=== PATIENT | female | born 1955 | race Caucasian/White ===

== ENCOUNTER 2020-08-07 13:33 | Emergency (ER) | payer OTHER, SELFPAY ==
[2020-08-07 13:40] VITALS: BP 107/70; PULSE 74; RESP 16; TEMP 36.7; O2SAT 95
--- NOTE | 2020-08-07 13:41 | ED.GENADUL_ITS ---
Discharge Plan Discharge Details Chief Complaint: Orthopedic Primary Care Provider: Yuridia Fallon ED Provider: Tonya De La Cruz Home Meds and New Rx's Prescriptions: No Action citalopram 10 mg Tablet 20 mg PO DAILY RF: 0 HPI General Date/Time Provider Initiated Documentation: 08/07/20 13:41 . Related Data Home Medications Medication Instructions Recorded Confirmed citalopram 20 mg PO DAILY 08/07/20 08/07/20 Allergies Allergy/AdvReac Type Severity Reaction Status Date / Time nitrofurantoin Allergy Unverified 08/07/20 13:42 [From Macrobid] Sulfa (Sulfonamide Allergy Unverified 08/07/20 13:42 Antibiotics) PFSH Social History Smoking/Tobacco Use Status: Former Tobacco Use Alcohol Intake: current Alcohol Intake frequency: 3 or more drinks per day Substance use type: does not use Do you feel safe at home: Yes Do you feel safe in your relationship?: Yes
--- NOTE | 2020-08-07 13:45 | DI.RAD_ITS ---
EXAM: XR ANKLE LT COMPLETE CLINICAL HISTORY: trauma, lateral ankle pain TECHNIQUE: COMPARISON: No exams were available for comparison FINDINGS: Three views were obtained. The ankle mortise is well maintained. There is mild soft tissue swelling of the ankle. No fracture is identified. IMPRESSION: RADIATION DOSE DELIVERED: Total DLP
[2020-08-07 15:38] VITALS: BP 102/70; PULSE 70; RESP 16; TEMP 36.7; O2SAT 95
--- NOTE | 2020-08-21 07:45 | ED.GENADUL_ITS ---
Discharge Plan Disposition Patient Disposition: HOME Condition: Stable Discharge Details Clinical Impression: Ankle injury Primary Care Provider: Yuridia Fallon ED Provider: Tonya De La Cruz Home Meds and New Rx's Prescriptions: Continued citalopram 10 mg Tablet 20 mg PO DAILY RF: 0 Discharge Instructions Instructions: Ankle Sprain (ED) Additional Instructions: Please return immediately to the emergency department if you develop any new or worsening symptoms, if your condition does not improve as expected, or if you become otherwise concerned. It is extremely important that you call soon as possible to make an appointment to be seen in follow-up for this visit by your primary care doctor. Referrals: Yuridia Fallon [Primary Care Provider] - Discharge Data Discharge Date/Time-TO BE ENTERED AT DEPARTURE: 08/07/20 15:29 Medical Decision Making Davida Wells is a 64-year-old woman without reported history of major medical problems who presented to the emergency department with left ankle pain after stepping into a hole and twisting her left ankle. On exam patient is well and nontoxic-appearing. There is no bony tenderness of the proximal fibula, left lateral/medial malleoli. Concern for fracture versus sprain. Plan for x-rays. Exam/history at this time is not consistent with foot fracture, lower leg fracture proximal to the ankle, other acute emergent medical pathology. X-rays negative for fracture. Plan for ankle brace. Patient refuses crutches, states that she has some at home and is able to walk without assistance. I had a lengthy discussion with Patient regarding return to emergency department precautions, home care, and importance of outpatient follow-up. Pt verbalizes understanding of the plan and is amenable. Patient discharged to home with clear plan for outpatient follow-up. All questions were answered. Disposition decision was made weighing the risks and benefits of hospitalization versus outpatient treatment, the risk for further decompensation, and the patient's wishes. Medical Records Medical records reviewed: Yes I reviewed the patient's medical records. Imaging Data Radiologic Study: Attestation: I personally reviewed and interpreted this imaging study as follows: Radiologist's impression: EXAM: XR ANKLE LT COMPLETE CLINICAL HISTORY: trauma, lateral ankle pain TECHNIQUE: COMPARISON: No exams were available for comparison FINDINGS: Three views were obtained. The ankle mortise is well maintained. There is mild soft tissue swelling of the ankle. No fracture is identified. HPI General Mode of arrival: ambulatory . Date/Time Provider Initiated Documentation: 08/07/20 13:41 . Limitations to Documentation: no limitations . Information obtained by: patient, RN notes reviewed and old records reviewed . HPI Narrative: Davida Young-man is a 64-year-old woman without reported history of medical problems presenting to emergency department with ankle pain. Patient reports that at approximately 1130 this morning she was in her yard and stepped into a hole in the ground. Patient reports that she twisted her left ankle and heard a snap. Patient reports that she has been walking since the injury although with pain. Took ibuprofen with some relief. Patient reports that she did not fall to the ground, did not hit her head. No loss of consciousness. Patient reports no preceding symptoms. Was previously in her usual state of health. She denies any other pain, numbness, weakness, rash, fever. She does report swelling of the left ankle since the injury. Patient reports no history of major injury or surgery to this ankle in the past. Related Data Home Medications Medication Instructions Recorded Confirmed citalopram 20 mg PO DAILY 08/07/20 08/07/20 Allergies Allergy/AdvReac Type Severity Reaction Status Date / Time nitrofurantoin Allergy Unverified 08/07/20 13:42 [From Macrobid] Sulfa (Sulfonamide Allergy Unverified 08/07/20 13:42 Antibiotics) General Stated Complaint: Orthopedic MARGARITA: 4 Review of Systems Narrative: Constitutional: denies fevers Eyes: denies eye pain ENT: denies ear pain, dental pain, sore throat Cardiovascular: denies chest pain Respiratory: denies SOB, cough GI: denies abdominal pain, vomiting, diarrhea : denies flank pain MSK: denies back pain, neck pain, reports left ankle pain and swelling Skin: denies rash Neuro: denies headaches, numbness, weakness PFSH Social History Smoking/Tobacco Use Status: Former Tobacco Use Alcohol Intake: current Alcohol Intake frequency: 3 or more drinks per day Substance use type: does not use Do you feel safe at home: Yes Do you feel safe in your relationship?: Yes Exam Narrative Exam Narrative: Constitutional: well and [id number], pleasant, conversing normally HENT: head atraumatic/normocephalic/normal inspection, mucous membranes moist Eyes: conjunctiva normal, sclera normal, pupils 3mm b/l Neck: no stridor, normal ROM, trachea midline Resp: normal work of breathing, no respiratory distress Cardio: normal rate, normal rhythm Skin: warm, dry, normal color, no rash Neuro: alert, not altered, grossly non-focal, normal tone Ext: Moderate tenderness palpation posterior to left lateral malleolus no bony tenderness palpation of the lateral or medial malleoli, no tenderness palpation of the calcaneus, dorsal or plantar foot, no tenderness palpation of proximal lateral lower leg, full painless range of motion of the knee, range of motion of the left ankle somewhat limited secondary to pain, patient able to range left toes without pain, cap refill left toes brisk, DP pulses intact and symmetric, normal sensation of the left foot Psych: normal mood, normal affect, normal behavior Course Vital Signs Vital signs: Vital Signs Temperature 36.7 C 08/07/20 13:40 Pulse 74 08/07/20 13:40 Respiratory Rate 16 08/07/20 13:40 Blood Pressure 107/70 08/07/20 13:40 Pulse Oximetry 95 08/07/20 13:40 Temperature 36.7 C 08/07/20 15:38 Temperature Source Skin 08/07/20 13:40 Pulse 70 08/07/20 15:38 Respiratory Rate 16 08/07/20 15:38 Respiratory Effort Non-Labored 08/07/20 13:43 Blood Pressure 102/70 08/07/20 15:38 Blood Pressure Position Sitting 08/07/20 13:40 Pulse Oximetry 95 08/07/20 15:38 Oxygen Delivery Method Room Air 08/07/20 13:40 Oxygen Flow Rate 0 08/07/20 13:40 Pain Level 2 08/07/20 15:38
== END 2020-08-07 15:29 | disposition home or self-care (01) ==
LOC: ER 15:24
PROVIDERS: Emergency Provider Student in an Organized Health Care Education/Training Program; PCP Internal Medicine
DX: S99.912A Unspecified injury of left ankle, initial encounter (principal); W17.2XXA Fall into hole, initial encounter; X50.9XXA Other and unspecified overexertion or strenuous movements or postures, initial encounter
CPT/HCPCS: 29515; 99283; 73610; L1902